=== PATIENT | male | born 1970 | race Hispanic/Latino ===

== ENCOUNTER 2017-04-08 11:17 | Emergency (ER) | payer MEDICAID, OTHER ==
[2017-04-08 11:35] VITALS: TEMP 98.1
[2017-04-08] MEDS ORDERED: Tmp-Smz 800 mg-160 mg DS Tab PO STA (12:15)
[2017-04-08] MEDS ORDERED: Bacitracin 500 Units/gm Oint Foilpak UD ONE (12:20)
--- NOTE | 2017-04-08 12:20 | C.PDOC ---
History Of Present Illness 46 yo male pmh hep C, dm (does not take medication for it) and IVDU, c/o right hand swelling for 2 days. Denies trauma or injection to the area. Denies fever. No change in sensation. Time Seen by Provider: 04/08/17 12:05 Chief Complaint (Nursing): Abnormal Skin Integrity History Per: Patient History/Exam Limitations: no limitations Onset/Duration Of Symptoms: Days Current Symptoms Are (Timing): Still Present Past Medical History Vital Signs: Last Vital Signs Temp 98.1 F 04/08/17 11:32 Pulse 66 04/08/17 11:32 Resp 16 04/08/17 11:32 BP 111/59 L 04/08/17 11:32 Pulse Ox 99 04/08/17 12:20 Family History: States: Unknown Family Hx - Social History Hx Alcohol Use: Yes Hx Substance Use: Yes - Immunization History Hx Tetanus Toxoid Vaccination: No Hx Influenza Vaccination: No Hx Pneumococcal Vaccination: No Review Of Systems Constitutional: Negative for: Fever Cardiovascular: Positive for: Chest Pain Respiratory: Negative for: Shortness of Breath Gastrointestinal: Negative for: Abdominal Pain Neurological: Negative for: Weakness, Numbness Physical Exam - Physical Exam Appears: Well, Non-toxic, No Acute Distress Skin: Warm, Dry, Other ((+) swelling and erythema to dorsal aspect of right hand with scab at 5th mcp, no fluctuance ; no discharge. (+) track dale to left upper extremity (+) multiple scabs and opens sores diffusely (+) 4cm healing wound to 4th and 5th mcp: no surrounding ertyhema or discharge.) Head: Atraumatic, Normacephalic Eye(s): bilateral: Normal Inspection, EOMI Nose: Normal Oral Mucosa: Moist Neck: Normal, Normal ROM, Supple Chest: Symmetrical Cardiovascular: Rhythm Regular Respiratory: Normal Breath Sounds Gastrointestinal/Abdominal: Normal Exam, Hernia (umbilcal, reducible, nontender) Back: Normal Inspection Extremity: Normal ROM, Capillary Refill (<2 sec) Pulses: Left Radial: Normal, Right Radial: Normal Neurological/Psych: Oriented x3, Normal Speech, Normal Motor, Normal Sensation ED Course And Treatment O2 Sat by Pulse Oximetry: 99 Progress Note: Area or ertyehma circled. Pt was instructed to return in two days for wound check or sooner if symptoms persist or worsen. CAse discussed and pt evaluated by Dr Fry, agreed upon plan and treatment. Disposition - Disposition Disposition: HOME/ ROUTINE Disposition Time: 12:19 Condition: STABLE Additional Instructions: Return in 2 days for wound check or sooner if symptoms persist or worsen. Prescriptions: Cephalexin [cephalexin] 500 mg PO BID #14 cap Mupirocin 2% Ointment [Bactroban Ointment] 1 appl TP TID #1 tube Sulfamethoxazole/Trimethoprim [Bactrim DS 800 mg-160 mg] 1 tab PO BID #14 tab Instructions: Cellulitis (ED) Forms: [facility] (Danish), Work Excuse - Clinical Impression Clinical Impression: Cellulitis, IVDU (intravenous drug user)
[2017-04-08] MEDS ORDERED: Piperacillin/Tazobact 3.375 gm 100 ML IV STA (12:22)
[2017-04-08] MEDS ORDERED: Piperacill/Tazo 3.375gm in Dex 3.375 GM/50 ML BAG IVPB STA (12:26)
[2017-04-08] MEDS ORDERED: Vancomycin 1 gm/NS 200 ml 1 GM/200 ML BAG IVPB ONE (12:30)
--- NOTE | 2017-04-08 12:47 | RAD ---
PROCEDURE: Right Hand Radiographs. HISTORY: pain COMPARISON: None. FINDINGS: BONES: Bone alignment and mineralization are normal. There is no acute fracture or bone destruction. JOINTS: The joint spaces are preserved. SOFT TISSUES: Normal. OTHER FINDINGS: None. IMPRESSION: No acute fracture or dislocation.
[2017-04-08 14:49] VITALS: BP 116/65; PULSE 65; RESP 17; O2SAT 97
== END 2017-04-08 14:50 | disposition home or self-care (01) ==
LOC: C.ER 11:17
DX: L03.113 Cellulitis of right upper limb (principal); F19.10 Other psychoactive substance abuse, uncomplicated; Z23 Encounter for immunization
CPT/HCPCS: 73130; 82948; 90471; 90715; 96365; 96367; 99285; J2543; J3370

== ENCOUNTER 2017-04-10 20:52 | Emergency (ER) | payer MEDICAID, OTHER ==
[2017-04-10 21:11] VITALS: BP 108/66; PULSE 86; RESP 20; TEMP 98.9; O2SAT 95
--- NOTE | 2017-04-11 01:04 | C.PDOC ---
History Of Present Illness 46 year old male presents to the ER with a complaint of pain and swelling to the right hand. Patient was seen on 04/08/17 for similar complaint and was discharged on PO antibiotics which he has been taking since that day. Patient reports swelling has improved but still complains of moderate pain over the right 5th knuckle which prompted ER visit. Denies fever, weakness, numbness, or recent trauma. Time Seen by Provider: 04/10/17 21:04 Chief Complaint (Nursing): Abnormal Skin Integrity History Per: Patient History/Exam Limitations: no limitations Onset/Duration Of Symptoms: Days Current Symptoms Are (Timing): Still Present Location Of Injury: Right: Hand Quality Of Symptoms: Painful Recent travel outside of the [place]: No Past Medical History Reviewed: Historical Data, Nursing Documentation, Vital Signs Vital Signs: Last Vital Signs Temp 98.9 F 04/10/17 21:03 Pulse 86 04/10/17 21:03 Resp 20 04/10/17 22:26 BP 108/66 04/10/17 21:03 Pulse Ox 95 04/11/17 01:14 - Medical History PMH: No Chronic Diseases Surgical History: No Surg Hx Family History: States: Unknown Family Hx - Social History Hx Alcohol Use: Yes Hx Substance Use: Yes - Immunization History Hx Tetanus Toxoid Vaccination: No Hx Influenza Vaccination: No Hx Pneumococcal Vaccination: No Review Of Systems Constitutional: Negative for: Fever, Chills Musculoskeletal: Positive for: Hand Pain Neurological: Negative for: Weakness, Numbness Physical Exam - Physical Exam Appears: Non-toxic, No Acute Distress Skin: Warm, Dry Head: Atraumatic, Normacephalic Eye(s): bilateral: Normal Inspection, EOMI Extremity: Capillary Refill (<2 seconds), No Deformity, Other (Overused hands with multiple healing scars at different spots with erythema, warmth, and swelling over 4th and 5th right MCP extending to the 5th digit. ROM within normal limits, no proximal streaking.) Pulses: Left Radial: Normal, Right Radial: Normal Neurological/Psych: Oriented x3, Normal Motor, Normal Sensation ED Course And Treatment O2 Sat by Pulse Oximetry: 95 (Room air) Pulse Ox Interpretation: Normal Progress Note: I d/w pt that due to his PMHX and risk factors he will need lab work to be done here in the ER, with possble admission. patient stated he needed to make a phone call before having any labs done. Patient did not return from making the phone call, eloped. Disposition - Disposition Disposition: AGAINST MEDICAL ADVICE Disposition Time: 22:00 Condition: FAIR Forms: [facility] (Faroese) - Clinical Impression Clinical Impression: Cellulitis of hand, right - Scribe Statement The provider has reviewed the documentation as recorded by the Scribe Phillip Amin All medical record entries made by the Scribe were at my direction and personally dictated by me. I have reviewed the chart and agree that the record accurately reflects my personal performance of the history, physical exam, medical decision making, and the department course for this patient. I have also personally directed, reviewed, and agree with the discharge instructions and disposition.
== END 2017-04-10 22:27 | disposition left against medical advice (07) ==
LOC: C.ER 20:52
DX: L03.113 Cellulitis of right upper limb (principal)